=== PATIENT | male | born 1980 | race Two or more races ===

== ENCOUNTER → 2018-12-13 | Outpatient (CLI) | payer OTHER ==
--- NOTE | 2018-12-13 17:41 | REP ---
MR LUMBAR SPINE WITHOUT AND WITH CONTRAST: HISTORY: Back pain. Decreased signal intensity on T2-weighted images is present in the L1-2 intervertebral disc. The disc is decreased in height. These findings are consistent with disc degeneration. There is no disc bulge or herniation at the L1-2 through L5-S1 levels. The nerves exit the neural foramina without compression. The conus medullaris is normal in appearance terminating at the level of the L1-2 intervertebral disc. Normal signal intensity is present in the lumbar vertebral bodies. There is an old compression fracture of the T12 vertebral body with minimal height loss. IMPRESSION: There is no disc bulge or herniation. Electronically Signed by Jf Morin MD 12/17/2018 08:14 A
== END ==
LOC: M PLARAD 15:01
PROVIDERS: ATTEND Family Medicine
DX: R93.89 Abnormal findings on diagnostic imaging of other specified body structures (principal); M54.5 Low back pain